=== PATIENT | male | born 1970 | race Caucasian/White ===

== ENCOUNTER 2017-11-26 20:02 | Emergency (ER) | payer MEDICARE, MEDICAID ==
[~2017-11-26] VITALS: Ht 167.6 cm; Wt 106.6 kg
[2017-11-26] MEDS ORDERED: LORAZEPAM 1 MG TABLET ONE (20:28)
[2017-11-26 20:29] LABS: BASOPHILS # (AUTO) 0.1 /CMM (0.0-0.2); BASOPHILS % (AUTO) 0.8 % (0.0-2.0); EOSINOPHILS % (AUTO) 1.1 % (0.0-6.0); HEMATOCRIT 44 % (39-51); HEMOGLOBIN 14.9 g/dL (13.5-17.5); LYMPHOCYTES # (AUTO) 2.7 /CMM (0.8-4.8); LYMPHOCYTES % (AUTO) 31.5 % (20.0-44.0); MEAN CORPUSCULAR HGB CONC 34 g/dl (31.0-36.0); MEAN CORPUSCULAR VOLUME 83 fL (80-96); MONOCYTES # (AUTO) 0.5 /CMM (0.1-1.30); MONOCYTES % (AUTO) 5.7 % (2.0-12.0); NEUTROPHILS # (AUTO) 5.2 /CMM (1.8-8.9); NEUTROPHILS % (AUTO) 60.9 % (43.0-81.0); PLATELET COUNT (AUTO) 309 /CMM (150-450); RDW COEFFICIENT OF VARIATION 12.8 (11.5-15.0); RED BLOOD CELL COUNT(AUTO) 5.28 MIL/uL (4.5-6.0); WHITE BLOOD COUNT (AUTO) 8.6 K/uL (4.3-11.0)
[2017-11-26] MEDS ORDERED: LORAZEPAM 1 MG TABLET PO ONE (20:30)
[2017-11-26 20:44] LABS: APPEARANCE,URINE Clear (CLEAR); BILIRUBIN,URINE MODERATE (NEGATIVE); BLOOD, URINE Negative Ery/uL (NEGATIVE); COLOR,URINE Yellow (YELLOW); KETONES,URINE 80 (NEGATIVE); LEUKOCYTE ESTERASE ,URINE Negative (NEGATIVE); NITRITE, URINE Negative (NEGATIVE); PH,URINE 5.5 (5.0-8.0); PROTEIN,URINE Trace mg/dl (NEGATIVE); UGLUCOSE Negative (NEGATIVE)
[2017-11-26 20:46] LABS: BACTERIA,URINE Moderate /HPF (None Seen); SQUAMOUS EPITHELIAL CELL,UR Few /HPF (None Seen)
[2017-11-26 20:47] LABS: CALCIUM, SERUM 9.3 mg/dL (8.5-10.1); CARBON DIOXIDE 26 mmol/L (21-32); CHLORIDE 102 mmol/L (98-107); CREATININE 1.2 mg/dL (0.6-1.3); GLUCOSE 92 mg/dL (74-106); POTASSIUM 3.4 mmol/L (3.5-5.1); SODIUM SERUM 140 mmol/L (136-145); UREA NITROGEN, BLOOD 14 mg/dL (7-18)
[2017-11-26 20:47] LABS: RBC,URINE 0-2 /HPF (0-2); WBC,URINE 0-2 /HPF (0-3)
--- NOTE | 2017-11-26 20:50 | NUR ---
PER PT "AM HAVING A PANIC ATTACK", NAD NOTED, VSS, RESP EVEN AND UNLABORED, PT WAS PUT ON AND MONITOR. WAITING FOR MD LOAIZA.
[2017-11-26 20:52] LABS: ALANINE AMINOTRANSFERASE 24 U/L (12-78); ALBUMIN 3.7 g/dL (3.4-5.0); ALKALINE PHOSPHATASE 83 U/L (46-116); ASPARTATE AMINOTRANSFERASE 17 U/L (15-37); BILIRUBIN,DIRECT 0.2 mg/dL (0.0-0.2); BILIRUBIN,TOTAL 0.8 mg/dL (0.2-1.0); TOTAL PROTEIN, SERUM 7.3 g/dL (6.4-8.2)
[2017-11-26 20:53] LABS: ACETAMINOPHEN < 2 ug/ml (10-30); ALCOHOL, BLOOD 0 mg/dL (0-0); SALICYLATE 1.5 mg/dL (2.8-20.0)
--- NOTE | 2017-11-26 22:56 | NUR ---
ART GAS TRUCK DRIVER FOR PSYCH EVAL AT 12, CALLED TO INFORM HIM ABOUT PT.
--- NOTE | 2017-11-26 23:00 | NUR ---
Patient is resting comfortably in bed with eyes closed. Easily aroused. VSS
--- NOTE | 2017-11-27 00:22 | NUR ---
EULALIO LARRY ARRIVED FOR EVAL
--- NOTE | 2017-11-27 01:00 | NUR ---
PT PSYCHIATRICALLY CLEARED BY EULALIO LARRY LCSW. PT RESTING AT THIS TIME. WILL LEAVE IN THE MORNING PER ART AND DR. CHISHOLM. PT GIVEN OUT PATIENT RESOURCES BY ART FOR FOLLOW UP.
--- NOTE | 2017-11-27 02:15 | NUR ---
Patient is resting comfortably in bed with eyes closed. Easily aroused. VSS
[2017-11-27 05:24] VITALS: BP 102/53
--- NOTE | 2017-11-27 05:24 | NUR ---
Patient given written and verbal discharge instructions. Patient verbalizes understanding of instructions. Patient is ambulatory with steady gait. Refuses offer of correction placement. Patient given list of available shelters in surrounding area. VSS, NAD noted on DC. Denies complaint on DC.
== END 2017-11-27 05:26 | disposition home or self-care (01) ==
LOC: ER 20:05
DX: F32.9 Major depressive disorder, single episode, unspecified (principal); F41.9 Anxiety disorder, unspecified
CPT/HCPCS: 36415; 80048-TC; 80076-TC; 80305; 81000-TC; 85025-TC; 87086-TC; A4606; G0480; Z7610

== ENCOUNTER 2017-12-07 00:03 | Emergency (ER) | payer MEDICARE, MEDICAID ==
[~2017-12-07] VITALS: Ht 167.6 cm; Wt 104.3 kg
--- NOTE | 2017-12-07 00:20 | NUR ---
to bed 10 ambulatory c/o " I'm bipolar & i havent taken my med since july because im in denial". pt aaox4 no acute distress noted, resp even and unlabored. pt denies si or hi. pt calm and cooperative at this time.
[2017-12-07 00:38] LABS: BASOPHILS % (AUTO) 0.5 % (0.0-2.0); EOSINOPHILS % (AUTO) 0.9 % (0.0-6.0); HEMATOCRIT 42 % (39-51); HEMOGLOBIN 14.5 g/dL (13.5-17.5); LYMPHOCYTES # (AUTO) 2.2 /CMM (0.8-4.8); LYMPHOCYTES % (AUTO) 31.4 % (20.0-44.0); MEAN CORPUSCULAR HGB CONC 34 g/dl (31.0-36.0); MEAN CORPUSCULAR VOLUME 85 fL (80-96); MONOCYTES # (AUTO) 0.5 /CMM (0.1-1.30); MONOCYTES % (AUTO) 6.5 % (2.0-12.0); NEUTROPHILS # (AUTO) 4.3 /CMM (1.8-8.9); NEUTROPHILS % (AUTO) 60.7 % (43.0-81.0); PLATELET COUNT (AUTO) 286 /CMM (150-450); RDW COEFFICIENT OF VARIATION 14.1 (11.5-15.0); RED BLOOD CELL COUNT(AUTO) 4.97 MIL/uL (4.5-6.0); WHITE BLOOD COUNT (AUTO) 7.1 K/uL (4.3-11.0)
[2017-12-07 00:52] LABS: CALCIUM, SERUM 8.5 mg/dL (8.5-10.1); CARBON DIOXIDE 31 mmol/L (21-32); CHLORIDE 103 mmol/L (98-107); CREATININE 0.2 mg/dL (0.6-1.3); GLUCOSE 90 mg/dL (74-106); POTASSIUM 3.5 mmol/L (3.5-5.1); SODIUM SERUM 142 mmol/L (136-145); UREA NITROGEN, BLOOD 20 mg/dL (7-18)
[2017-12-07 01:03] LABS: ALANINE AMINOTRANSFERASE 100 U/L (12-78); ALBUMIN 3.6 g/dL (3.4-5.0); ALCOHOL, BLOOD < 3 mg/dL (0-0); ALKALINE PHOSPHATASE 84 U/L (46-116); ASPARTATE AMINOTRANSFERASE 99 U/L (15-37); BILIRUBIN,DIRECT 0.2 mg/dL (0.0-0.2); BILIRUBIN,TOTAL 0.7 mg/dL (0.2-1.0); TOTAL PROTEIN, SERUM 7.1 g/dL (6.4-8.2)
[2017-12-07 01:04] LABS: ACETAMINOPHEN 0 ug/ml (10-30); SALICYLATE 0.2 mg/dL (2.8-20.0)
--- NOTE | 2017-12-07 01:30 | NUR ---
Patient discharged to home in stable condition. Written and verbal after care instructions given. Patient verbalizes understanding of instruction. pt denies si or hi a tthis time.
--- NOTE | 2017-12-07 01:30 | NUR ---
EULALIO SANCHEZ HOME VISITOR HOME BASE HEAD START AT BEDSIDE TO [facility]AD[facility] PT. PT CALM AND COOPERATIVE AT THIS TIME.
[2017-12-07 01:34] VITALS: BP 114/74
== END 2017-12-07 01:35 | disposition home or self-care (01) ==
LOC: ER 00:05
DX: F31.9 Bipolar disorder, unspecified (principal); F41.9 Anxiety disorder, unspecified; E11.9 Type 2 diabetes mellitus without complications; Z76.0 Encounter for issue of repeat prescription
CPT/HCPCS: 36415; 80048-TC; 80076-TC; 80305; 85025-TC; A4606; G0480; Z7610

== ENCOUNTER 2018-01-29 06:31 | Emergency (ER) | payer MEDICARE, MEDICAID ==
[~2018-01-29] VITALS: Ht 167.6 cm; Wt 72.6 kg
--- NOTE | 2018-01-29 06:49 | NUR ---
BIBSELF C/C LEFT FLANK PAIN 04/08 NON RADIATING AND C/O "I WANT TO CHECK MY BLOOD SUGAR". PT IS AAOX4. AMBULATED WITH STEADY GAIT TO ER BED. SKIN WNL. RESP EVEN ANDNUNLABORED. NO S/S OF ACUTE DISTRESS NOTED. AWAITING MD FOR EVAL.
--- NOTE | 2018-01-29 07:02 | NUR ---
phlebotomy bedside for blood draw
[2018-01-29 07:12] LABS: APPEARANCE,URINE CLEAR (CLEAR); BILIRUBIN,URINE 1+ (NEGATIVE); BLOOD, URINE NEGATIVE Ery/uL (NEGATIVE); COLOR,URINE YELLOW (YELLOW); KETONES,URINE 2+ (NEGATIVE); LEUKOCYTE ESTERASE ,URINE NEGATIVE (NEGATIVE); NITRITE, URINE NEGATIVE (NEGATIVE); PH,URINE 5.5 (5.0-8.0); PROTEIN,URINE NEGATIVE (NEGATIVE); UGLUCOSE NEGATIVE (NEGATIVE); UROBILINOGEN,URINE 0.2 EU/dL (0.2)
[2018-01-29 07:13] LABS: BASOPHILS % (AUTO) 0.5 % (0.0-2.0); EOSINOPHILS % (AUTO) 0.9 % (0.0-6.0); HEMATOCRIT 40 % (39-51); HEMOGLOBIN 13.7 g/dL (13.5-17.5); LYMPHOCYTES # (AUTO) 2.5 /CMM (0.8-4.8); MEAN CORPUSCULAR HGB CONC 34 g/dl (31.0-36.0); MEAN CORPUSCULAR VOLUME 86 fL (80-96); MONOCYTES # (AUTO) 0.5 /CMM (0.1-1.30); MONOCYTES % (AUTO) 5.8 % (2.0-12.0); NEUTROPHILS # (AUTO) 4.9 /CMM (1.8-8.9); NEUTROPHILS % (AUTO) 61.8 % (43.0-81.0); PLATELET COUNT (AUTO) 248 /CMM (150-450); RDW COEFFICIENT OF VARIATION 14.1 (11.5-15.0); RED BLOOD CELL COUNT(AUTO) 4.69 MIL/uL (4.5-6.0)
--- NOTE | 2018-01-29 07:21 | NUR ---
REPORT GIVEN TO JOSE MCGEE FOR ZACHARY
[2018-01-29 07:24] LABS: CALCIUM, SERUM 8.4 mg/dL (8.5-10.1); CREATININE 0.8 mg/dL (0.6-1.3); POTASSIUM 3.6 mmol/L (3.5-5.1)
[2018-01-29 07:30] LABS: ALBUMIN 3.5 g/dL (3.4-5.0); BILIRUBIN,DIRECT 0.1 mg/dL (0.0-0.2); BILIRUBIN,TOTAL 0.6 mg/dL (0.2-1.0); TOTAL PROTEIN, SERUM 6.8 g/dL (6.4-8.2)
--- NOTE | 2018-01-29 07:35 | NUR ---
PT TAKEN TO CT
[2018-01-29 08:04] LABS: RBC,URINE NONE SEEN /HPF (0-2)
[2018-01-29 08:05] LABS: WBC,URINE 0-2 /HPF (0-3)
[2018-01-29 08:06] LABS: BACTERIA,URINE None seen /HPF (None Seen); SQUAMOUS EPITHELIAL CELL,UR Few /HPF (None Seen)
--- NOTE | 2018-01-29 08:42 | NUR ---
Patient discharged to home in stable condition. Written and verbal after care instructions given. Patient verbalizes understanding of instruction.
[2018-01-29 08:43] VITALS: BP 123/80
== END 2018-01-29 08:43 | disposition home or self-care (01) ==
LOC: ER 06:42
DX: R10.9 Unspecified abdominal pain (principal); F41.9 Anxiety disorder, unspecified; F31.9 Bipolar disorder, unspecified
CPT/HCPCS: 36415; 80048-TC; 80076-TC; 81000-TC; 83690-TC; 85025-TC; A4606; Z7610

== ENCOUNTER 2018-03-03 06:48 | Emergency (ER) | payer MEDICARE, MEDICAID ==
[~2018-03-03] VITALS: Ht 167.6 cm; Wt 90.7 kg
[2018-03-03 06:51] VITALS: BP 151/99
== END 2018-03-03 07:22 | disposition home or self-care (01) ==
LOC: ER 06:53
DX: R19.09 Other intra-abdominal and pelvic swelling, mass and lump (principal); F41.9 Anxiety disorder, unspecified; F31.9 Bipolar disorder, unspecified; Z59.0 Homelessness
CPT/HCPCS: 82962; 99282; A4606; Z7610